=== PATIENT | male | born 1980 | race Caucasian/White ===

== ENCOUNTER 2016-10-08 11:27 | Emergency (ER) | payer OTHER ==
[~2016-10-08] VITALS: Ht 188 cm; Wt 113.4 kg
[2016-10-08] MEDS ORDERED: NS 1,000 ML IV ONE (12:00)
[2016-10-08] MEDS ORDERED: KETOROLAC 30 MG/ML VIAL (J1885) IV ONE (12:00)
[2016-10-08] MEDS ORDERED: ONDANSETRON 4MG/2ML VIAL (J2405) IV ONE (12:00)
--- NOTE | 2016-10-08 12:34 | REP ---
Clinical: Cough. Technique: PA and lateral. Comparison: 01/09/2016. Findings: Increased perihilar opacities along with subtle bilateral mid to lower lobe infiltrates compatible with multifocal pneumonia and reactive adenopathy. No effusion. No pneumothorax. Cardiac silhouette is normal. Skeletal structures intact. Impression: Bilateral perihilar and lower lobe opacities (right greater than left) suggesting multifocal pneumonia. Signed by Junior Montoya MD 10/08/2016 12:25 P
[2016-10-08] MEDS ORDERED: cefTRIAXone SOD 2 GM in D5W MINI-BAG PLUS 50 ML IV ONE (12:45)
[2016-10-08] MEDS ORDERED: AZITHROMYCIN 250 MG TAB PO ONE (12:45)
[2016-10-08] MEDS ORDERED: ACETAMINOPHEN 325 MG TAB PO ONE (13:30)
[2016-10-08] MEDS ORDERED: ZOFR4TAB3 PO (13:31)
[2016-10-08] MEDS ORDERED: ZITHTAB PO (13:31)
[2016-10-08 13:39] VITALS: BP 107/47
== END 2016-10-08 13:44 | disposition home or self-care (01) ==
LOC: M ED 12:53 → EEVIPCON 12:53 → M ED 13:44
DX: J18.1 Lobar pneumonia, unspecified organism (principal); B95.3 Streptococcus pneumoniae as the cause of diseases classified elsewhere; B95.62 Methicillin resistant Staphylococcus aureus infection as the cause of diseases classified elsewhere; B95.4 Other streptococcus as the cause of diseases classified elsewhere; R50.9 Fever, unspecified; R05 Cough; J43.9 Emphysema, unspecified; Z88.0 Allergy status to penicillin
CPT/HCPCS: 36415; 71020; 80048; 80076; 85025; 87040; 87070; 87077; 87184; 87186; 87205; 87804; 87880; 96365; 96375; 99283; J0696; J1885; J2405